=== PATIENT | female | born 1965 | race Caucasian/White ===

== ENCOUNTER 2024-12-26 08:33 | Inpatient (IN) ==
--- NOTE | 2024-12-26 08:42 | ED Physician Documentation ---
History of Present Illness Stated complaint Stated Complaint: SOA Chief complaint Chief Complaint: Resp History obtained from History obtained from: Patient and EMS History of Present Illness Pain level max: 3 Pain level now: 3 Additonal information Additional information: Patient is a 59-year-old female states has been short of breath for the past 3 weeks or so. She came up from [place] about a week ago. Has been using her daughter's oxygen and oxygen concentrator for the past several days. She states that she has been trying to quit vaping for the past few weeks. Feels like her breathing has gotten worse since that time. She states that she was having fevers but has not had 1 since last night. She states that she has used in halers in the past but has not used any inhalers or breathing treatments during this illness. EMS was called, placed her on oxygen and brought her to the emergency department. No treatments given en route. Patient has a history of HIV, she states her last viral load about a year ago was undetectable and her CD4 count was normal. 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 (Date/Year): December 09, 2024 Number of Years Smoked: 30 How many cigarettes a day do you smoke? (20 cigarettes=1 Pk): 10 Second hand tobacco smoke exposure: No Do you dip or chew tobacco?: No Do you vape?: Yes Patient requests smoking cessation consult: No Initiate information on smoking cessation: No Level: Independent Do you feel safe in your home environment?: Yes History of physical, verbal, emotional, or financial abuse?: No Substance Use: cannabis (any form) Substance Use Details: stopped on December 09, 2024 Exam Exam Vital Signs: Vital Signs x48h Temp Pulse Resp BP Pulse Ox O2 Flow Rate 12/26/24 10:15 100 22 115/74 96 5 12/26/24 10:11 86 18 4.5 12/26/24 10:00 88 20 119/67 97 15 12/26/24 09:45 97 22 124/65 90 L 5 12/26/24 09:30 101 H 88 L 5 12/26/24 09:15 96 22 93 5 12/26/24 09:00 95 18 4.5 12/26/24 09:00 91 20 101/61 92 5 12/26/24 08:49 95 22 97 15 12/26/24 08:45 98 20 84 L 6 12/26/24 08:43 6 12/26/24 08:37 37.6 C 103 H 20 102/64 77 L Constitutional Thin female, increased work of breathing, speaking in short sentences HENMT normocephalic, head/scalp atraumatic and oral mucous membranes normal Eyes PERRL Neck/C-Spine trachea midline Respiratory Diminished breath sounds bilaterally, end expiratory wheeze bilaterally increased work of breathing Psychiatry oriented x3 Skin skin color normal Results Vitals Vitals: Vital Signs - 24 hr 12/26/24 08:37 12/26/24 08:43 12/26/24 08:45 Temperature 37.6 C Temperature Source Temporal Artery Scan Pulse Rate 103 H 98 Respiratory Rate 20 20 Blood Pressure 102/64 O2 Saturation 77 L 84 L Oxygen Delivery Method Nasal Cannula O2 Source Room air Nasal cannula Oxygen Flow Rate If not protocol: Oxygen Flow, liters/minute 6 6 Pain Intensity 2 12/26/24 08:49 12/26/24 09:00 12/26/24 09:00 Temperature Temperature Source Pulse Rate 95 91 95 Respiratory Rate 22 20 18 Blood Pressure 101/61 O2 Saturation 97 92 Oxygen Delivery Method O2 Source Oxymask Nasal cannula Nasal cannula Oxygen Flow Rate If not protocol: Oxygen Flow, liters/minute 15 5 4.5 Pain Intensity 12/26/24 09:05 12/26/24 09:15 12/26/24 09:30 Temperature Temperature Source Pulse Rate 96 101 H Respiratory Rate 22 Blood Pressure O2 Saturation 93 88 L Oxygen Delivery Method Nasal Cannula O2 Source Nasal cannula Room air Oxygen Flow Rate 5 If not protocol: Oxygen Flow, liters/minute 5 5 Pain Intensity 12/26/24 09:45 12/26/24 10:00 12/26/24 10:11 Temperature Temperature Source Pulse Rate 97 88 86 Respiratory Rate 22 20 18 Blood Pressure 124/65 119/67 O2 Saturation 90 L 97 Oxygen Delivery Method O2 Source Nasal cannula Oxymask Nasal cannula Oxygen Flow Rate If not protocol: Oxygen Flow, liters/minute 5 15 4.5 Pain Intensity 12/26/24 10:15 Temperature Temperature Source Pulse Rate 100 Respiratory Rate 22 Blood Pressure 115/74 O2 Saturation 96 Oxygen Delivery Method O2 Source Nasal cannula Oxygen Flow Rate If not protocol: Oxygen Flow, liters/minute 5 Pain Intensity Oxygen O2 Source Nasal cannula Oxygen Flow Rate 5 Labs Labs: Laboratory Tests 12/26/24 08:43 WBC 11.4 H RBC 4.06 L Hgb 10.9 L Hct 33.5 L MCV 82.5 MCH 26.8 L MCHC 32.5 RDW 13.1 Plt Count 337 MPV 9.4 Neut # (Auto) 10.7 H Lymph # (Auto) 0.4 L [place] # (Auto) 0.2 Eos # (Auto) 0.0 Baso # (Auto) 0.0 Absolute Nucleated RBC 0.00 Nucleated RBC % 0.0 Sodium 131 L Potassium 4.5 Chloride 94 L Carbon Dioxide 31 Anion Gap 6.0 BUN 12 Creatinine 0.7 Estimated GFR (MDRD) 86 L Glucose 115 H Calcium 8.9 Total Bilirubin 0.5 AST 30 ALT 22 Alkaline Phosphatase 69 Total Protein 7.1 Albumin 2.9 L Globulin 4.2 Albumin/Globulin Ratio 0.7 L Rads (name of study) Chest x-ray, CT angiogram chest: Relevant Findings:: Final report received PD Medical Decision Making ED course Complexity details: reviewed results, re-evaluated patient, considered differential and d/w patient ED course: 59-year-old female history of HIV, on Biktarvy. She has also had a lengthy vaping history. Feels better after nebulizer treatment and steroids but still remains hypoxic, 90% on 5 L. She states that her last viral load and CD4 count were undetectable and within normal range respectively. We will send off a CD4 count and viral load today. Her chest x-ray and CT scan are concerning for infection. Imaging concerning for possible pneumocystis jiroveci, therefore was started on Bactrim in addition to the usual treatment of Rocephin and azithromycin. Patient will need admission for hypoxia, pneumonia and nebulizer treatments. Discussed the case with the hospitalist who accepts. This document was made in part using voice recognition software. While efforts are made to proofread this document, sound alike and grammatical errors may occur. Discharge Plan Discharge Patient Disposition: 66 [facility] DC/Xfer Condition: Stable Clinical Impression: Hypoxia Pneumonia Qualifiers: Pneumonia type: due to unspecified organism Laterality: bilateral Lung location: unspecified part of lung Qualified Code(s): J18.9 - Pneumonia, unspecified organism HIV (human immunodeficiency virus infection) Qualifiers: HIV symptom status: unspecified Qualified Code(s): Z21 - Asymptomatic human immunodeficiency virus [HIV] infection status Interventions: ED Admission Assessment Last Done: 12/26/24 11:09 Vitals documented within 30 minutes of discharge?: Yes
[2024-12-26] MEDS: methylPREDNISolone SUCCINATE 125 MG/2 ML VIAL IVP STA (08:43)
[2024-12-26] MEDS: IPRATROPIUM/ALBUTEROL 3 ML NEB INH STA (08:46)
[2024-12-26 08:49] LABS: HCT - HEMATOCRIT 33.5 % (37.0-47.0); HGB - HEMOGLOBIN 10.9 g/dL (12.0-16.0); MEAN PLATELET VOLUME 9.4 fL (7.9-10.8); NRBC ABSOLUTE COUNT (AUTO) 0.00 x10^3/uL; NUCLEATED RED BLOOD CELLS AUTO 0.0 /100WBC; PLT - PLATELET COUNT 337 10^3/uL (130-450); RED CELL DISTRIBUTION WIDTH 13.1 % (12.0-15.0)
[2024-12-26] MEDS: SODIUM CHLORIDE 0.9% 1,000 ML IV STA (08:54)
--- NOTE | 2024-12-26 09:02 | XRAY Report ---
PROCEDURE: XR Chest 1V INDICATIONS: cough, dyspnea TECHNIQUE: One view of the chest was acquired. COMPARISON: None. FINDINGS: Surgical changes and devices: ORIF of the left humerus. Lungs and pleura: Increased interstitial opacities. Mediastinum: Mediastinal contours appear normal. Heart size is normal. Bones and chest wall: No suspicious bony lesions. Overlying soft tissues appear unremarkable. IMPRESSION: Increase in interstitial opacities which may represent edema. However, airspace disease cannot be excluded. Reviewed by: Mireille Messer MD on 12/26/2024 9:01 AM PDT Approved by: Mireille Messer MD on 12/26/2024 9:01 AM PDT Station ID: [id number]
[2024-12-26 09:05] LABS: ALT ALANINE AMINOTRANSFERASE 22.0 IU/L (10-60); AST ASPARTATE AMINOTRANSFERASE 30.0 IU/L (10-42); BUN - BLOOD UREA NITROGEN 12.0 mg/dL (6-20); CARBON DIOXIDE - CO2 31.0 mmol/L (21-32); CREATININE 0.7 mg/dL (0.6-1.3); GFR - MDRD 86.0 (>89)
[2024-12-26] MEDS ORDERED: iohexoL-300 150 ML BOTTLE ONE (09:11)
--- NOTE | 2024-12-26 09:47 | CT Report ---
PROCEDURE: CT Angio Chest INDICATIONS: dyspnea CONTRAST: 80ml omni 300 TECHNIQUE: After the administration of intravenous contrast, 2 mm axial images were acquired from the pulmonary apices to the posterior costophrenic angles during the arterial phase. In addition, 1 mm lung kernel and 5 mm soft tissue kernel reconstructions were performed. 3-dimensional coronal oblique maximum intensity projection (MIP) reformats, 8 mm axial MIP, and 5 mm coronal and sagittal MPR reformats were then performed through the thorax. For radiation dose reduction, the following was used: automated exposure control, adjustment of mA and/or kV according to patient size. COMPARISON: Chest x-ray 12/26/2024. FINDINGS: Image quality: Suboptimal for evaluation of emboli within the segmental/subsegmental branches. Large vessels: No filling defects within the opacified main pulmonary arteries, accounting for motion and contrast timing. No evidence of acute aortic syndrome or aortic aneurysm. Lungs and pleura: Dependent changes are present predominantly in the right base. There is overall appearance of groundglass opacities within the lungs. Mediastinum: Heart size is normal. No pericardial effusion. No large vessel abnormality. No mediastinal adenopathy by size criteria. Chest wall and lower neck: Thyroid is unremarkable. No axillary or supraclavicular adenopathy by size. Bones: Right lateral sixth rib deformity likely related to prior trauma or surgery. Upper Abdomen: Unremarkable. IMPRESSION: No central pulmonary embolism. Bilateral groundglass opacity suggestive of infection/inflammation. Recommend interval follow-up to document resolution after appropriate therapy. Reviewed by: Mireille Messer MD on 12/26/2024 9:45 AM PDT Approved by: Mireille Messer MD on 12/26/2024 9:45 AM PDT Station ID: [id number]
[2024-12-26] MEDS: AZITHROMYCIN INJ 500 MG in SODIUM CHLORIDE 0.9% 250 ML IV STA (09:52)
[2024-12-26] MEDS: cefTRIAXone 1 GM VIAL IVP STA (09:52)
[2024-12-26 09:55] LABS: B. PARAPERTUSSIS- RESP PCR PAN NOT DETECTED; B. PERTUSSIS- RESP PCR PANEL NOT DETECTED; C. PNEUMONIAE- RESP PCR PANEL NOT DETECTED; CORONAVIRUS 229E-RESP PCR NOT DETECTED; CORONAVIRUS HKU1-RESP PCR NOT DETECTED; CORONAVIRUS NL63-RESP PCR NOT DETECTED; CORONAVIRUS OC43-RESP PCR NOT DETECTED; HUMAN METAPNEUMOVIRUS NOT DETECTED; INFLUENZA A- RESP PCR PANEL NOT DETECTED; INFLUENZA B - RESP PCR PANEL NOT DETECTED; M. PNEUMONIAE- RESP PCR PANEL NOT DETECTED; PARAINFLUENZA VIRUS 1 NOT DETECTED; PARAINFLUENZA VIRUS 2 NOT DETECTED; PARAINFLUENZA VIRUS 4 NOT DETECTED; RHINOVIRUS/ENTEROVIRUS NOT DETECTED; RSV- RESP PCR PANEL NOT DETECTED; SARS-CoV-2 -RESP PCR PANEL NOT DETECTED
[2024-12-26] MEDS: SULFAMETH/TRIMETH DS 800/160 MG TABLET PO STA (09:59)
[2024-12-26] MEDS: ALBUTEROL NEB 2.5 MG/3 ML INH STA (10:09)
--- NOTE | 2024-12-26 10:24 | HISTORY & PHYSICAL EXAMINATION ---
Chief Complaint Chief Complaint Chief Complaint: Difficulty breathing History of Present Illness Admitted From Admitted From:: Home History Obtained From Records Reviewed: EMR History obtained from: Patient Exam Limitations: None History of Present Illness HPI Comment/Other: Patient is a 59-year-old female with a history of HIV on Biktarvy, vape use history who presents with worsening shortness of breath. 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 She recently passed at the end of November. Since then, patient has been increasingly stressed and, and noncompliant with her Biktarvy regimen. She states that even normally, she only takes it 3 times a week, and that has helped keep her viral load undetectable. However, over the past few weeks, she has barely been taking it at all because she has been so distracted. She also was a heavy vape user, and quit on 12/09/2024. Since then, she has been increasingly short of breath. She normally lives in [facility], [place] here so she could help take care of her with this new shortness of breath. Her nurse friend was able to give her some breathing treatments, and supplement oxygen. However, last night, she ran out of oxygen. She had increasing shortness of breath, and as such decided to come to the ER. Over the last few weeks, she has also been having intermittent fevers and chills. In the ER, patient was hypoxic to 77%, and required 4 L of oxygen to improve to 92 to 95%. Her respiratory rate was 20, she was tachycardic to 103, afebrile, and blood pressure was 102/64. Lab work was reviewedshe does have a leukocytosis of 11.4. BMP was largely unremarkable. Respiratory viral panel was negative. Initial chest x-ray showed interstitial opacities. This was followed by a CTA which showed no PE, but bilateral ground glass opacities. Due to high suspicion for PCP pneumonia, she was started on IV Bactrim, as well as IV Solu-Medrol, and admitted for further workup. 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 (Date/Year): December 09, 2024 Number of Years Smoked: 30 How many cigarettes a day do you smoke? (20 cigarettes=1 Pk): 10 Second hand tobacco smoke exposure: No Do you dip or chew tobacco?: No Do you vape?: Yes Patient requests smoking cessation consult: No Initiate information on smoking cessation: No Level: Independent Do you feel safe in your home environment?: Yes History of physical, verbal, emotional, or financial abuse?: No Substance Use: cannabis (any form) Substance Use Details: stopped on December 09, 2024 POLST Patient has POLST: No Review of Systems Constitutional Reports: Fever, Chills and Weakness; Denies: Fatigue, Malaise or Poor appetite Eyes Denies: Pain, Irritation, Blurry vision, Vision loss, Diplopia or Eye discomfort Ears, nose, mouth, and throat Denies: Ear pain, Hearing loss, Tinnitus, Nose bleeds, Nasal discharge, Mouth lesions, Bleeding gums or Neck pain Cardiovascular Reports: shortness of breath with exertion; Denies: Irregular heart rate, chest pain, palpitations, edema or Syncope Respiratory Reports: Shortness of breath, Cough and Sputum production; Denies: Wheezing Gastrointestinal Denies: Abdominal pain, Abdominal distention, Nausea, Vomiting, Heartburn, Diarrhea or Constipation Genitourinary Denies: Painful urination, Urinary frequency or Urinary urgency Musculoskeletal Denies: Back pain, Neck pain, Extremity pain, Extremity swelling or Joint pain Integumentary/Breast Denies: Rash, Itching, Dryness, Redness or Skin pain Neurological Reports: General weakness; Denies: Headache, Weakness in extremities, Numbness in extremities, Abnormal gait or Dizziness Psychiatric Denies: Depression, Anxiety, Mood swings or Panic attacks Endocrine Denies: Excessive urination, Excessive thirst or Fatigue Hematologic/Lymphatic Denies: Anemia, Easy bruising or Easy bleeding Allergic/Immunologic Denies: Hives, Tongue swelling, Facial swelling or Wheezing Prior Level of Functionality: Independent of ADLs. Lives alone. Retired. Used to own a herbal shop. Exam Exam Vital Signs: Vital Signs x48h Temp Pulse Resp BP Pulse Ox O2 Flow Rate 12/26/24 10:45 100 22 107/61 91 L 3.5 12/26/24 10:30 102 H 20 109/59 L 97 5 12/26/24 10:15 100 22 115/74 96 5 12/26/24 10:11 86 18 4.5 12/26/24 10:00 88 20 119/67 97 15 12/26/24 09:45 97 22 124/65 90 L 5 12/26/24 09:30 101 H 88 L 5 12/26/24 09:15 96 22 93 5 12/26/24 09:00 95 18 4.5 12/26/24 09:00 91 20 101/61 92 5 12/26/24 08:49 95 22 97 15 12/26/24 08:45 98 20 84 L 6 12/26/24 08:43 6 12/26/24 08:37 99.7 F 103 H 20 102/64 77 L Constitutional normal general appearance, distress noted, average body habitus and no limitations Mild respiratory distress noted, some conversational dyspnea noted HENMT normocephalic, head/scalp atraumatic and hearing grossly normal bilaterally Eyes PERRL, EOMs intact bilaterally and conjunctivae normal Neck/C-Spine visual inspection normal, trachea midline and cervical spine nontender Chest inspection of chest normal Respiratory breath sounds equal bilaterally and normal respiratory effort Fine crackles noted diffusely, right greater than left Cardiovascular heart rate abnormal (tachycardic), regular rhythm noted, no gallop, no rub and no murmur Gastrointestinal abdomen normal to inspection, abdomen soft to palpation, nontender to palpation and normoactive bowel sounds Genitourinary no CVA tenderness and bladder normal to palpation Back/Pelvis spine normal to inspection, no thoracic spine tenderness and no lumbar spine tenderness Extremities normal to inspection, normal to palpation, no tenderness and full ROM Neurology no movement abnormality noted and no focal motor deficit noted Psychiatry mental status grossly normal, oriented x3, thought process normal, cooperative and affect normal Skin skin color normal, no rash, no lesions and no wounds Conclusion/Plan Problem List (1) PCP (pneumocystis jiroveci pneumonia): Plan: Patient presents with shortness of breath, hypoxia requiring 4 L of oxygen, fevers and chills at home. She endorses being noncompliant with her Biktarvy. CT chest shows bilateral ground glass opacities. Will treat at this time as presumptive PCP pneumonia. Fungal sputum culture, anaerobic/aerobic cultures of the sputum are ordered, pending. [id number] send out test is also ordered. Continue Bactrim weight-based dosing IV every 8 hours. Will treat with IV Bactrim as recommended for a few days, and then switch to oral dosing for a total of 21-day course. Continue IV Solu-Medrol this time, and then will switch to oral prednisone once patient is improved. Continue DuoNebs 3 times a day. Respiratory precautions in place. Qualifiers: Laterality: bilateral Lung location: unspecified part of lung Q ualified Code(s): B59 - Pneumocystosis (2) Acute hypoxic respiratory failure: Plan: See above. Continue Rocephin, azithromycin at this time as well for possible community-acquired pneumonia. However, high suspicion for PCP pneumonia with patient having noncompliance with her antiretrovirals, as well as typical imaging findings of PCP pneumonia. (3) HIV (human immunodeficiency virus infection): Plan: Continue Biktarvy. Qualifiers: HIV symptom status: unspecified Qualified Code(s): Z21 - Asymptomatic human immunodeficiency virus [HIV] infection status (4) Vaping-related disorder: Plan: Continue to encourage cessation when appropriate. Lab Results Lab results reviewed: Yes 12/26/24 08:43 12/26/24 08:43 Diagnostic Imaging Results Diagnostic Imaging Results: positive Final report reviewed Core Measures Anticipated LOS I expect patient to be DC'd or transferred within 96 hours.: Yes DVT/VTE - Prophylaxis VTE/DVT Device ordered at admit?: No VTE/DVT Prophylaxis med ordered at admit?: Yes
[2024-12-26] MEDS: SMX/TMP 800MG/160MG 10ML 20 ML in DEXTROSE 5% 500 ML IV ONE (10:41)
[2024-12-26] MEDS ORDERED: ACETAMINOPHEN 325 MG TABLET PO PRN (11:17)
[2024-12-26] MEDS ORDERED: ONDANSETRON 4 MG/2 ML VIAL IVP PRN (11:17)
[2024-12-26] MEDS ORDERED: ONDANSETRON ODT 4 MG TABLET TL PRN (11:17)
[2024-12-26] MEDS: methylPREDNISolone SUCCINATE 40 MG/ML VIAL IVP SCH (14:23)
[2024-12-26] MEDS: IPRATROPIUM/ALBUTEROL 3 ML NEB INH SCH (15:53)
--- NOTE | 2024-12-26 15:55 | PHARMACY PROGRESS NOTE ---
Best Possible Medication History Admit Date and Time: 12/26/24 [id number] Home Medications Medication Instructions Recorded Confirmed Type acetylcysteine 500 mg tablet 500 mg PO DAILY 12/26/24 12/26/24 History bictegravir 50 mg-emtricitabine 1 tab PO DAILY 5 12/26/24 History 200 mg-tenofovir alafenam 25 mg tablet (Biktarvy) tox ease 1 cap PO DAILY 12/26/2412/06 History Processed by: Pharmacy Medications reviewed in ED?: No Medication History completed: Yes Patient Interview: Pt unable to participate Secondary Source(s): Prescription bottles [facility] Statement: As the person ultimately responsible for medication therapy, providers are able to order a medication from an existing home medication list in [facility] via the "Reconcile Routine" prior to Confirmation of that medication by network support technician. Such practice is discouraged except when the physician, in their clinical judgment, deems that a medical need exists for a medication without regard to previous use.
[2024-12-26] MEDS: SODIUM CHLORIDE FLUSH 0.9% 10 ML SYRINGE IVP SCH (17:46)
[2024-12-26] MEDS: SMX/TMP 800MG/160MG 10ML 20 ML in DEXTROSE 5% 500 ML IV SCH (19:01)
[2024-12-26] MEDS ORDERED: WATER FOR INJECTION,STERILE 10 ML MC ONE (21:26)
[2024-12-26] MEDS: SODIUM CHLORIDE FLUSH 0.9% 10 ML SYRINGE IVP PRN (21:32)
[2024-12-27] MEDS ORDERED: DEXTROSE 5% 500 ML IV ONE ×2 (01:18→18:23)
[2024-12-27] MEDS: IPRATROPIUM/ALBUTEROL 3 ML NEB INH PRN (02:26)
[2024-12-27 05:54] LABS: HCT - HEMATOCRIT 32.1 % (37.0-47.0); HGB - HEMOGLOBIN 10.4 g/dL (12.0-16.0); MEAN PLATELET VOLUME 9.5 fL (7.9-10.8); PLT - PLATELET COUNT 316.0 10^3/uL (130-450); RED CELL DISTRIBUTION WIDTH 12.9 % (12.0-15.0)
[2024-12-27 06:19] LABS: BUN - BLOOD UREA NITROGEN 11.0 mg/dL (6-20); CARBON DIOXIDE - CO2 27.0 mmol/L (21-32); CREATININE 0.7 mg/dL (0.6-1.3); GFR - MDRD 86.0 (>89)
--- NOTE | 2024-12-27 07:55 | PROVIDER PROGRESS NOTE ---
Subjective Subjective Subjective: Patient states that she feels better today. She states her shortness of breath is improving. She is trying to bring up sputum. Still yellow to clear. Denies any fevers or chills. Current Medications Current Medications Current Medications: Current Medications Generic Name Dose Route Start Last Admin Trade Name Freq PRN Reason Stop Dose Admin Acetaminophen 650 mg 12/26/24 11:17 Acetaminophen 325 Mg Tablet PO Q4HR PRN Pain 1 to 4, or Fever Albuterol/Ipratropium 3 ml 12/26/24 14:00 12/26/24 20:26 Ipratropium/Albuterol 3 Ml Neb INH 3 ml TID ALEJANDRO Administration Albuterol/Ipratropium 3 ml 12/27/24 02:12 12/27/24 02:26 Ipratropium/Albuterol 3 Ml Neb INH 3 ml Q4HR PRN Administration Wheezing Alprazolam 0.25 mg 12/26/24 21:47 12/27/24 02:11 Alprazolam 0.25 Mg Tablet PO 0.25 mg Q6HR PRN Administration Anxiety Ceftriaxone Sodium 1 gm 12/27/24 09:00 Ceftriaxone 1 Gm Vial IVP DAILY ALEJANDRO Enoxaparin Sodium 40 mg 12/27/24 09:00 Enoxaparin 40 Mg/0.4 Ml Syringe SUBQ DAILY ALEJANDRO Trimethoprim/Sulfamethoxazole 520 mls @ 346.667 mls/hr 12/26/24 19:00 12/27/24 06:58 20 ml/ Dextrose IV Infused Q8H ALEJANDRO Infusion Azithromycin 500 mg/ Sodium 250 mls @ 250 mls/hr 12/27/24 09:00 Chloride IV DAILY ALEJANDRO Methylprednisolone 40 mg 12/26/24 14:00 12/27/24 06:59 Methylprednisolone Succinate 40 Mg/Ml Vial IVP 40 mg TID ALEJANDRO Administration Ondansetron HCl 4 mg 12/26/24 11:17 Ondansetron Odt 4 Mg Tablet TL Q6HR PRN Nausea / Vomiting Ondansetron HCl 4 mg 12/26/24 11:17 Ondansetron 4 Mg/2 Ml Vial IVP Q6HR PRN Nausea / Vomiting Sodium Chloride 10 ml 12/26/24 11:17 12/26/24 21:32 Sodium Chloride Flush 0.9% 10 Ml Syringe IVP 10 ml PRN PRN Administration NEEDED PER PROVIDER ORDERS Sodium Chloride 10 ml 12/26/24 17:00 12/27/24 03:13 Sodium Chloride Flush 0.9% 10 Ml Syringe IVP 10 ml 0100,0900,1700 [facility] Administration Sterile Water 10 ml 12/27/24 09:00 Water For Injection,Sterile 10 Ml Vial DAILY [facility] Objective Vital Signs/Intake & Output Reviewed Vital Signs: Yes Vital Signs: Vital Signs x48h Temp Pulse Pulse Resp BP Pulse Ox O2 Flow Rate 12/27/24 02:26 72 20 5 12/27/24 02:00 97.9 F 78 14 111/69 93 4.5 Intake & Output: Intake & Output 12/24/24 12/25/24 12/26/24 12/27/24 23:59 23:59 23:59 23:59 Intake Total 3330 / 3330 620 / 620 Balance 3330 / 3330 620 / 620 Weight (kg) 49 kg Objective General Appearance: positive No acute distress and Alert; negative Anxious Eyes Bilateral: positive Normal inspection, PERRL and EOMI ENT: positive ENT inspection nml, Pharynx nml and No signs of dehydration Neck: positive Nml inspection, Thyroid nml and No JVD Respiratory: positive Chest non-tender, No respiratory distress and Other (Diffuse fine crackles, right worse than left); negative Wheezes, Rales or Rhonchi Cardiovascular: positive Regular rate & rhythm, No murmur and No gallop; negative Tachycardia or Systolic murmur Abdomen: positive Non-tender, No organomegaly and No distention; negative Guarding or Splenomegaly Back: positive Nml inspection; negative CVA tenderness (R) or CVA tenderness (L) Skin: positive Color nml, No rash, Warm and Dry Extremities: positive Non-tender, Full ROM, Nml appearance and No pedal edema Neurologic/Psychiatric: positive Oriented x3, Motor nml and Mood/affect nml Lab Results 12/27/24 05:40 12/27/24 05:40 Other Labs: Lab Results x24hrs 12/27/24 12/26/24 12/26/24 Range/Units 05:40 Unknown 08:43 WBC 12.5 H 11.4 H (4.8-10.8) x10^3/uL RBC 3.84 L 4.06 L (4.20-5.40) 10^6/uL Hgb 10.4 L 10.9 L (12.0-16.0) g/dL Hct 32.1 L 33.5 L (37.0-47.0) % MCV 83.6 82.5 (81.0-99.0) fL MCH 27.1 26.8 L (27.0-31.0) pg MCHC 32.4 32.5 (32.0-36.0) g/dL RDW 12.9 13.1 (12.0-15.0) % Plt Count 316 337 (130-450) 10^3/uL MPV 9.5 9.4 (7.9-10.8) fL Neut # (Auto) 10.7 H (1.5-6.6) 10^3/uL Lymph # (Auto) 0.4 L (1.5-3.5) 10^3/uL Gaston # (Auto) 0.2 (0.0-1.0) 10^3/uL Eos # (Auto) 0.0 (0.0-0.7) 10^3/uL Baso # (Auto) 0.0 (0.0-0.1) 10^3/uL Absolute Nucleated RBC 0.00 x10^3/uL Nucleated RBC % 0.0 /100WBC Sodium 133 L 131 L (135-145) mmol/L Potassium 4.1 4.5 (3.5-4.5) mmol/L Chloride 101 94 L (101-111) mmol/L Carbon Dioxide 27 31 (21-32) mmol/L Anion Gap 5.0 L 6.0 (6-13) BUN 11 12 (6-20) mg/dL Creatinine 0.7 0.7 (0.6-1.3) mg/dL Estimated GFR (MDRD) 86 L 86 L (>89) Glucose 115 H 115 H (74-104) mg/dL Calcium 8.3 L 8.9 (8.5-10.3) mg/dL Magnesium 2.1 (1.7-2.3) mg/dL Total Bilirubin 0.5 (0.2-1.0) mg/dL AST 30 (10-42) IU/L ALT 22 (10-60) IU/L Alkaline Phosphatase 69 (42-121) IU/L Total Protein 7.1 (6.4-8.9) g/dL Albumin 2.9 L (3.2-5.5) g/dL Globulin 4.2 (2.1-4.2) g/dL Albumin/Globulin Ratio 0.7 L (1.0-2.2) Nasal Adenovirus (PCR) NOT DETECTED Nasal B. parapertussis DNA (PCR) NOT DETECTED Nasal Coronavir 229E PCR NOT DETECTED Nasal Coronavir HKU1 PCR NOT DETECTED Nasal Coronavir NL63 PCR NOT DETECTED Nasal Coronavir OC43 PCR NOT DETECTED Nasal Enterovir/Rhinovir PCR NOT DETECTED Nasal Influenza B PCR NOT DETECTED Nasal Influenza A PCR NOT DETECTED Nasal Parainfluen 1 PCR NOT DETECTED Nasal Parainfluen 2 PCR NOT DETECTED Nasal Parainfluen 3 PCR NOT DETECTED Nasal Parainfluen 4 PCR NOT DETECTED Nasal RSV (PCR) NOT DETECTED Nasal B.pertussis DNA PCR NOT DETECTED Nasal C.pneumoniae (PCR) NOT DETECTED Juan Jose Human Metapneumo PCR NOT DETECTED Nasal M.pneumoniae (PCR) NOT DETECTED Nasal SARS-CoV-2 (PCR) NOT DETECTED Assessment/Plan Problem List (1) PCP (pneumocystis jiroveci pneumonia): Impression: Patient presents with shortness of breath, hypoxia requiring 5 L of oxygen, fevers and chills at home. She endorses being noncompliant with her Biktarvy. CT chest shows bilateral ground glass opacities. Will treat at this time as presumptive PCP pneumonia. Fungal sputum culture, anaerobic/aerobic cultures of the sputum are ordered, pending. [id number] send out test is also ordered. Continue Bactrim weight-based dosing IV every 8 hours. Will treat with IV Bactrim as recommended for a few days, and then switch to oral dosing for a total of 21-day course. Continue IV Solu-Medrol this time, and then will switch to oral prednisone once patient is improved. Continue DuoNebs 3 times a day. Respiratory precautions in place. Qualifiers: Laterality: bilateral Lung location: unspecified part of lung Q ualified Code(s): B59 - Pneumocystosis (2) Acute hypoxic respiratory failure: Impression: See above. Continue Rocephin, azithromycin at this time as well for possible community-acquired pneumonia. However, high suspicion for PCP pneumonia with patient having noncompliance with her antiretrovirals, as well as typical imaging findings of PCP pneumonia. (3) HIV (human immunodeficiency virus infection): Impression: Continue Biktarvy. 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
[2024-12-27] MEDS: AZITHROMYCIN INJ 500 MG in SODIUM CHLORIDE 0.9% 250 ML IV SCH (08:54)
[2024-12-27] MEDS: cefTRIAXone 1 GM VIAL IVP SCH (08:54)
[2024-12-27] MEDS: ENOXAPARIN 40 MG/0.4 ML SYRINGE SUBQ SCH (08:54)
[2024-12-27 14:08] LABS: % CD 4 POS. LYMPH. 4.8 % (30.8-58.5); ABSOLUTE CD 4 HELPER 14.0 /uL (359-1519)
[2024-12-28] MEDS ORDERED: DEXTROSE 5% 500 ML IV ONE (02:48)
[2024-12-28 06:02] LABS: HCT - HEMATOCRIT 31.0 % (37.0-47.0); HGB - HEMOGLOBIN 9.8 g/dL (12.0-16.0); MEAN PLATELET VOLUME 9.9 fL (7.9-10.8); PLT - PLATELET COUNT 361.0 10^3/uL (130-450); RED CELL DISTRIBUTION WIDTH 13.1 % (12.0-15.0)
[2024-12-28 06:20] LABS: BUN - BLOOD UREA NITROGEN 12.0 mg/dL (6-20); CARBON DIOXIDE - CO2 25.0 mmol/L (21-32); CREATININE 0.8 mg/dL (0.6-1.3); GFR - MDRD 74.0 (>89)
[2024-12-28] MEDS ORDERED: LEVALBUTEROL 1.25 MG/3 ML NEB INH PRN ×2 (07:48→07:49)
[2024-12-28] MEDS ORDERED: LEVALBUTEROL 1.25 MG/3 ML NEB INH SCH (08:00)
[2024-12-28] MEDS: BICTEGRAV EMTRICIT TENOFOV ALA PO SCH (08:25)
[2024-12-28] MEDS: LEVALBUTEROL 1.25 MG/3 ML NEB INH SCH (08:25)
--- NOTE | 2024-12-28 09:32 | PROVIDER PROGRESS NOTE ---
Subjective Subjective Subjective: Patient states that she feels better today. She states her shortness of breath is improving. She is trying to bring up sputum. Still yellow to clear. Denies any fevers or chills. She is feeling a little anxious at times, especially at night. She is attributing it to her steroid use. Current Medications Current Medications Current Medications: Current Medications Generic Name Dose Route Start Last Admin Trade Name Freq PRN Reason Stop Dose Admin Acetaminophen 650 mg 12/26/24 11:17 Acetaminophen 325 Mg Tablet PO Q4HR PRN Pain 1 to 4, or Fever Alprazolam 0.5 mg 12/27/24 21:59 12/28/24 00:12 Alprazolam 0.25 Mg Tablet PO 0.5 mg Q4H PRN Administration Anxiety Ceftriaxone Sodium 1 gm 12/27/24 09:00 12/28/24 08:24 Ceftriaxone 1 Gm Vial IVP 1 gm DAILY ALEJANDRO Administration Enoxaparin Sodium 40 mg 12/27/24 09:00 12/28/24 08:25 Enoxaparin 40 Mg/0.4 Ml Syringe SUBQ 40 mg DAILY ALEJANDRO Administration Guaifenesin 10 ml 12/27/24 09:26 12/27/24 16:23 Guaifenesin/Dextromethorphan 10 Ml Udc PO 10 ml Q6HR PRN Administration Cough Trimethoprim/Sulfamethoxazole 520 mls @ 346.667 mls/hr 12/26/24 19:00 12/28/24 07:44 20 ml/ Dextrose IV Infused Q8H ALEJANDRO Infusion Azithromycin 500 mg/ Sodium 250 mls @ 250 mls/hr 12/27/24 09:00 12/28/24 08:24 Chloride IV 250 mls/hr DAILY ALEJANDRO Administration Levalbuterol HCl 1.25 mg 12/28/24 07:49 Levalbuterol 1.25 Mg/3 Ml Neb INH Q4H PRN Shortness of Air/Wheezing Levalbuterol HCl 1.25 mg 12/28/24 08:00 12/28/24 08:25 Levalbuterol 1.25 Mg/3 Ml Neb INH 1.25 mg TID ALEJANDRO Administration Ondansetron HCl 4 mg 12/26/24 11:17 Ondansetron Odt 4 Mg Tablet TL Q6HR PRN Nausea / Vomiting Ondansetron HCl 4 mg 12/26/24 11:17 Ondansetron 4 Mg/2 Ml Vial IVP Q6HR PRN Nausea / Vomiting Patient Own Med ( 1 each 12/28/24 09:00 12/28/24 08:25 Bictegrav-Emtricit- PO Not Given Tenofov Ala [ DAILY ALEJANDRO Biktarvy] 50-200-25 Mg Tablet) Prednisone 40 mg 12/28/24 09:00 12/28/24 08:26 Prednisone 20 Mg Tablet PO 40 mg BID ALEJANDRO Administration Sodium Chloride 10 ml 12/26/24 11:17 12/27/24 21:57 Sodium Chloride Flush 0.9% 10 Ml Syringe IVP 10 ml PRN PRN Administration NEEDED PER PROVIDER ORDERS Sodium Chloride 10 ml 12/26/24 17:00 12/28/24 08:26 Sodium Chloride Flush 0.9% 10 Ml Syringe IVP 10 ml 0100,0900,1700 ALEJANDRO Administration Sterile Water 10 ml 12/27/24 09:00 12/28/24 08:24 Water For Injection,Sterile 10 Ml Vial MC 10 ml DAILY ALEJANDRO Administration Objective Vital Signs/Intake & Output Reviewed Vital Signs: Yes Vital Signs: Vital Signs x48h Pulse Resp O2 Flow Rate 12/28/24 08:25 3 12/28/24 08:25 114 H 18 3 Intake & Output: Intake & Output 12/25/24 12/26/24 12/27/24 12/28/24 23:59 23:59 23:59 23:59 Intake Total 3330 / 3330 2580 / 2580 920 / 920 Balance 3330 / 3330 2580 / 2580 920 / 920 Weight (kg) 49 kg Objective General Appearance: positive No acute distress and Alert; negative Anxious Eyes Bilateral: positive Normal inspection, PERRL and EOMI ENT: positive ENT inspection nml, Pharynx nml and No signs of dehydration Neck: positive Nml inspection, Thyroid nml and No JVD Respiratory: positive Chest non-tender, No respiratory distress and Other (Diffuse fine crackles, right worse than left); negative Wheezes, Rales or Rhonchi Cardiovascular: positive Regular rate & rhythm, No murmur and No gallop; negative Tachycardia or Systolic murmur Abdomen: positive Non-tender, No organomegaly and No distention; negative Guarding or Splenomegaly Back: positive Nml inspection; negative CVA tenderness (R) or CVA tenderness (L) Skin: positive Color nml, No rash, Warm and Dry Extremities: positive Non-tender, Full ROM, Nml appearance and No pedal edema Neurologic/Psychiatric: positive Oriented x3, Motor nml and Mood/affect nml Lab Results 12/28/24 05:08 12/28/24 05:08 Other Labs: Lab Results x24hrs 12/28/24 12/26/24 Range/Units 05:08 09:58 WBC 15.9 H (4.8-10.8) x10^3/uL RBC 3.67 L (4.20-5.40) 10^6/uL Hgb 9.8 L (12.0-16.0) g/dL Hct 31.0 L (37.0-47.0) % MCV 84.5 (81.0-99.0) fL MCH 26.7 L (27.0-31.0) pg MCHC 31.6 L (32.0-36.0) g/dL RDW 13.1 (12.0-15.0) % Plt Count 361 (130-450) 10^3/uL MPV 9.9 (7.9-10.8) fL Lymph # (Auto) 0.3 L (0.7-3.1) x10E3/uL Sodium 132 L (135-145) mmol/L Potassium 4.1 (3.5-4.5) mmol/L Chloride 101 (101-111) mmol/L Carbon Dioxide 25 (21-32) mmol/L Anion Gap 6.0 (6-13) BUN 12 (6-20) mg/dL Creatinine 0.8 (0.6-1.3) mg/dL Estimated GFR (MDRD) 74 L (>89) Glucose 184 H (74-104) mg/dL Calcium 8.3 L (8.5-10.3) mg/dL Magnesium 2.0 (1.7-2.3) mg/dL % CD4 Cells 4.8 L (30.8-58.5) % Absolute CD4 Count 14 L (359-1519) /uL Assessment/Plan Problem List (1) PCP (pneumocystis jiroveci pneumonia): Impression: Patient presents with shortness of breath, hypoxia requiring 5 L of oxygen, fevers and chills at home. She endorses being noncompliant with her Biktarvy. CT chest shows bilateral ground glass opacities. She is now down to 3 L. Will treat at this time as presumptive PCP pneumonia. Fungal sputum culture, anaerobic/aerobic cultures of the sputum are ordered, pending. [id number] send out test is also ordered. Continue Bactrim weight-based dosing IV every 8 hours. Will treat with IV Bactrim as recommended for a few days, and then switch to oral dosing for a total of 21-day course. Continue IV Bactrim at this time. Her oxygen needs are decreasing, as well as her tachypnea. However, her white count has continued to increase. Patient is a little hypotensive, which is a common and known side effect of IV Bactrim. Will supplement with IV fluids as needed. Completed 2 days of IV SoluMedrol. Will do prednisone 40 mg twice a day for 3 additional days, followed by prednisone 40 mg daily for 5 days, followed by prednisone 20 mg for 11 days. Patient is getting a little tachycardic and anxious with the DuoNeb treatments. Will try Xopenex. Respiratory precautions in place. Qualifiers: Laterality: bilateral Lung location: unspecified part of lung Q ualified Code(s): B59 - Pneumocystosis (2) Acute hypoxic respiratory failure: Impression: See above. Continue 5 day course of Rocephin, 3 day course of azithromycin at this time as well for possible community-acquired pneumonia. However, high suspicion for PCP pneumonia with patient having noncompliance with her antiretrovirals, as well as typical imaging findings of PCP pneumonia. (3) HIV (human immunodeficiency virus infection): Impression: Continue Biktarvy. Her CD4 count is 14. Per pharmacy, she has not filled her Biktarvy in over a year. I will call her infectious disease doctor on Sunday. She should be on histoplasmosis prophylaxis, as well as PCP prophylaxis moving forward. Will see if she has any resistance patterns or workup in the past with her ID doc, and if not we will resume her on her Biktarvy. 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
--- NOTE | 2024-12-28 15:09 | ECHO Report ---
Version: 1 Study ID: [id number] Adult Echocardiogram Report Name: ELIANA CALLE Study Date: 12/27/2024, 12: 53 PM Patient Location: MS2^2203^01 HR: 78 bpm : 1965 (MM/DD/YYYY) Gender: Female Height: 62 in Age: 59 Years Weight: 108.026 lb BSA: 1.47 m² Reason For Study: AARTI Interpretation Summary The visual left ventricular ejection fraction is estimated at 65 to 70%. Global left ventricular systolic function is normal. The right ventricle is normal in size and function. No concerning cardiac valve disease is noted. Left Ventricle: The left ventricle is normal in size. There is normal left ventricular wall thickness. No thrombus seen in the left ventricle. The visual left ventricular ejection fraction is estimated at 65 to 70%. Global left ventricular systolic function is normal. The overall diastolic pattern is one of normal left ventricular relaxation and filling pressures. Right Ventricle: The right ventricle is normal in size and function. TAPSE is consistent with normal right ventricular function. The tricuspid annular plane systolic excursion (TAPSE) measurement is 2.6 cm. Aortic Valve: The aortic valve is mildly calcified. The aortic valve is trileaflet. No hemodynamically significant valvular aortic stenosis. No aortic regurgitation is present. Mitral Valve: The mitral valve is visually normal in structure and function. No evidence of mitral stenosis is seen. There is trace mitral regurgitation. Tricuspid Valve: The tricuspid valve is normal in structure and function. There is no tricuspid stenosis. Trace tricuspid regurgitation present. Pulmonic Valve: The pulmonic valve is normal in structure and function. There is no pulmonic valvular stenosis. Trace pulmonic valvular regurgitation is present. Left Atrium: The left atrial size is normal. Right Atrium: Right atrial size is normal. The inferior vena cava appears normal. Atrial Septum: The interatrial septum appears normal, without evidence of shunt by 2D imaging and color Doppler. Aorta: The ascending aorta is normal in size. The sinuses of Valsalva are normal in size. Pulmonary Artery: The pulmonary artery is normal size. Inferior vena cava dynamics indicate normal right atrial pressures. Pulmonary artery systolic pressure could not be estimated due to an insufficient tricuspid regurgitant jet. Pericardium/Pleural Space: There is no pericardial effusion. Left Ventricle IVSd: 0.77 cm LVIDd: 4.4 cm LVPWd: 0.72 cm LVIDs: 2.9 cm ESV(sp4-el): 30.4 ml Right Ventricle TAPSE: 2.6 cm RV S Jair: 17.8 cm/sec Atria LA dimension: 4.0 cm LAV(MOD-sp4): 23.6 ml LAV(MOD-sp2): 21.7 ml Diastolic Function MV dec time: 0.19 sec MV E max jair: 121.2 cm/sec MV A max jair: 75.5 cm/sec Aortic Valve LVOT diam: 1.70 cm LV V1 mean P.9 mmHg LV V1 mean: 103.9 cm/sec LV V1 VTI: 32.2 cm Ao V2 VTI: 33.8 cm Ao mean P.0 mmHg Ao V2 mean: 113.8 cm/sec LV V1 max: 152.0 cm/sec LV V1 max P.2 mmHg Ao max P.3 mmHg Ao V2 max: 160.7 cm/sec Mitral Valve MV max P.8 mmHg MV V2 max: 140.1 cm/sec MV mean P.7 mmHg MV V2 mean: 72.4 cm/sec MV V2 VTI: 31.0 cm Aorta Ao root diam: 2.9 cm MMode/2D Measurements & Calculations Ao root diam: 2.9 cm BMI: 19.8 kilograms/m² BSA([facility]): 1.46 m² ESV(sp4-el): 30.4 ml IVSd: 0.77 cm LA A4C-A/L: 12.4 cm² LA dimension: 4.0 cm LA ESV-A/L: 31.6 ml LA Vol Index: 49.8 ml/m² LAV(MOD-sp2): 21.7 ml LAV(MOD-sp4): 23.6 ml LVIDd: 4.4 cm LVIDs: 2.9 cm LVOT diam: 1.70 cm LVPWd: 0.72 cm RA A4Cs: 10.3 cm² TAPSE: 2.6 cm Doppler Measurements & Calculations Ao max P.3 mmHg Ao mean P.0 mmHg Ao V2 max: 160.7 cm/sec Ao V2 mean: 113.8 cm/sec Ao V2 VTI: 33.8 cm Lat E/e': 10.8 LV V1 max: 152.0 cm/sec LV V1 max P.2 mmHg LV V1 mean: 103.9 cm/sec LV V1 mean P.9 mmHg LV V1 VTI: 32.2 cm Med E/e': 16.7 MV A max jair: 75.5 cm/sec MV dec time: 0.19 sec MV DVI-pr: 1.60 MV E max jair: 121.2 cm/sec MV max P.8 mmHg MV mean P.7 mmHg MV V2 max: 140.1 cm/sec MV V2 mean: 72.4 cm/sec MV V2 VTI: 31.0 cm PA max P.8 mmHg PA V2 max: 109.6 cm/sec RV S Jair: 17.8 cm/sec Other Measurements & Calculations Ao root area: 6.5 cm² ADRYAN(I,D): 2.17 cm² ADRYAN(V,D): 2.15 cm² EDV(Teich): 87.0 ml EF(sp-el): 50.0 % EF(Teich): 61.7 % ESV(Teich): 33.3 ml FS: 32.9 % LVOT area: 2.27 cm² MV E/A: 1.60 MVA(VTI): 2.36 cm² SV(LVOT): 73.2 ml MD Cheryle Ridley 12/28/2024, 3: 08 PM Ordering Physician: Chang Wilkerson Referring Physician: Abdias Ayers Performed By: NADIA
[2024-12-29 05:39] LABS: HCT - HEMATOCRIT 29.6 % (37.0-47.0); HGB - HEMOGLOBIN 9.5 g/dL (12.0-16.0); MEAN PLATELET VOLUME 9.7 fL (7.9-10.8); PLT - PLATELET COUNT 331.0 10^3/uL (130-450); RED CELL DISTRIBUTION WIDTH 13.3 % (12.0-15.0)
[2024-12-29 05:57] LABS: BUN - BLOOD UREA NITROGEN 10.0 mg/dL (6-20); CARBON DIOXIDE - CO2 25.0 mmol/L (21-32); CREATININE 0.8 mg/dL (0.6-1.3); GFR - MDRD 74.0 (>89)
--- NOTE | 2024-12-29 08:15 | PROVIDER PROGRESS NOTE ---
Subjective Subjective Subjective: Patient states that she feels better today. She states her shortness of breath is improving. She is trying to bring up sputum. Still yellow to clear. Denies any fevers or chills. She is feeling a little anxious at times, especially at night. She is attributing it to her steroid use. Current Medications Current Medications Current Medications: Current Medications Generic Name Dose Route Start Last Admin Trade Name Freq PRN Reason Stop Dose Admin Acetaminophen 650 mg 12/26/24 11:17 Acetaminophen 325 Mg Tablet PO Q4HR PRN Pain 1 to 4, or Fever Alprazolam 0.5 mg 12/27/24 21:59 12/28/24 21:32 Alprazolam 0.25 Mg Tablet PO 0.5 mg Q4H PRN Administration Anxiety Ceftriaxone Sodium 1 gm 12/27/24 09:00 12/28/24 08:24 Ceftriaxone 1 Gm Vial IVP 1 gm DAILY ALEJANDRO Administration Enoxaparin Sodium 40 mg 12/27/24 09:00 12/28/24 08:25 Enoxaparin 40 Mg/0.4 Ml Syringe SUBQ 40 mg DAILY ALEJANDRO Administration Guaifenesin 10 ml 12/27/24 09:26 12/27/24 16:23 Guaifenesin/Dextromethorphan 10 Ml Udc PO 10 ml Q6HR PRN Administration Cough Hydroxyzine Pamoate 25 mg 12/28/24 15:35 12/28/24 21:32 Hydroxyzine Pamoate 25 Mg Capsule PO 25 mg QPM PRN Administration Anxiety Trimethoprim/Sulfamethoxazole 520 mls @ 346.667 mls/hr 12/26/24 19:00 12/29/24 05:20 20 ml/ Dextrose IV Infused Q8H ALEJANDRO Infusion Azithromycin 500 mg/ Sodium 250 mls @ 250 mls/hr 12/27/24 09:00 12/28/24 10:54 Chloride IV Infused DAILY ALEJANDRO Infusion Levalbuterol HCl 1.25 mg 12/28/24 07:49 Levalbuterol 1.25 Mg/3 Ml Neb INH Q4H PRN Shortness of Air/Wheezing Levalbuterol HCl 1.25 mg 12/28/24 08:00 12/29/24 07:07 Levalbuterol 1.25 Mg/3 Ml Neb INH 1.25 mg TID LAEJANDRO Administration Ondansetron HCl 4 mg 12/26/24 11:17 Ondansetron Odt 4 Mg Tablet TL Q6HR PRN Nausea / Vomiting Ondansetron HCl 4 mg 12/26/24 11:17 Ondansetron 4 Mg/2 Ml Vial IVP Q6HR PRN Nausea / Vomiting Patient Own Med ( 1 each 12/28/24 09:00 12/28/24 08:25 Bictegrav-Emtricit- PO Not Given Tenofov Ala [ DAILY ALEJANDRO Biktarvy] 50-200-25 Mg Tablet) Prednisone 40 mg 12/28/24 09:00 12/28/24 21:32 Prednisone 20 Mg Tablet PO 40 mg BID ALEJANDRO Administration Sodium Chloride 10 ml 12/26/24 11:17 12/29/24 05:28 Sodium Chloride Flush 0.9% 10 Ml Syringe IVP 10 ml PRN PRN Administration NEEDED PER PROVIDER ORDERS Sodium Chloride 10 ml 12/26/24 17:00 12/29/24 01:45 Sodium Chloride Flush 0.9% 10 Ml Syringe IVP 10 ml 0100,0900,1700 ALEJANDRO Administration Sterile Water 10 ml 12/27/24 09:00 12/28/24 08:24 Water For Injection,Sterile 10 Ml Vial MC 10 ml DAILY ALEJANDRO Administration Objective Vital Signs/Intake & Output Reviewed Vital Signs: Yes Vital Signs: Vital Signs x48h Pulse Resp O2 Flow Rate 12/29/24 07:08 88 18 2.5 Intake & Output: Intake & Output 12/26/24 12/27/24 12/28/24 12/29/24 23:59 23:59 23:59 23:59 Intake Total 3330 / 3330 2580 / 2580 3720 / 3720 880 / 880 Balance 3330 / 3330 2580 / 2580 3720 / 3720 880 / 880 Weight (kg) 49 kg Objective General Appearance: positive No acute distress and Alert; negative Anxious Eyes Bilateral: positive Normal inspection, PERRL and EOMI ENT: positive ENT inspection nml, Pharynx nml and No signs of dehydration Neck: positive Nml inspection, Thyroid nml and No JVD Respiratory: positive Chest non-tender, No respiratory distress and Other (Diffuse fine crackles, right worse than left); negative Wheezes, Rales or Rhonchi Cardiovascular: positive Regular rate & rhythm, No murmur and No gallop; negative Tachycardia or Systolic murmur Abdomen: positive Non-tender, No organomegaly and No distention; negative Guarding or Splenomegaly Back: positive Nml inspection; negative CVA tenderness (R) or CVA tenderness (L) Skin: positive Color nml, No rash, Warm and Dry Extremities: positive Non-tender, Full ROM, Nml appearance and No pedal edema Neurologic/Psychiatric: positive Oriented x3, Motor nml and Mood/affect nml Lab Results 12/29/24 05:09 12/29/24 05:09 Other Labs: Lab Results x24hrs 12/29/24 Range/Units 05:09 WBC 11.5 H (4.8-10.8) x10^3/uL RBC 3.54 L (4.20-5.40) 10^6/uL Hgb 9.5 L (12.0-16.0) g/dL Hct 29.6 L (37.0-47.0) % MCV 83.6 (81.0-99.0) fL MCH 26.8 L (27.0-31.0) pg MCHC 32.1 (32.0-36.0) g/dL RDW 13.3 (12.0-15.0) % Plt Count 331 (130-450) 10^3/uL MPV 9.7 (7.9-10.8) fL Sodium 133 L (135-145) mmol/L Potassium 4.7 H (3.5-4.5) mmol/L Chloride 101 (101-111) mmol/L Carbon Dioxide 25 (21-32) mmol/L Anion Gap 7.0 (6-13) BUN 10 (6-20) mg/dL Creatinine 0.8 (0.6-1.3) mg/dL Estimated GFR (MDRD) 74 L (>89) Glucose 191 H (74-104) mg/dL Calcium 8.3 L (8.5-10.3) mg/dL Magnesium 1.9 (1.7-2.3) mg/dL Assessment/Plan Problem List (1) PCP (pneumocystis jiroveci pneumonia): Impression: Patient presents with shortness of breath, hypoxia requiring 5 L of oxygen, fevers and chills at home. She endorses being noncompliant with her Biktarvy. CT chest shows bilateral ground glass opacities. She is now down to 2.5 L. Will treat at this time as presumptive PCP pneumonia. Fungal sputum culture, anaerobic/aerobic cultures of the sputum are ordered, pending. [id number] send out test is also ordered. Continue Bactrim weight-based dosing IV every 8 hours. Will treat with IV Bactrim as recommended for a few days, and then switch to oral dosing for a total of 21-day course. Continue IV Bactrim at this time. Likely switch to oral Bactrim tomorrow. Her oxygen needs are decreasing, as well as her tachypnea, and leukocytosis. Patient is a little hypotensive, which is a common and known side effect of IV Bactrim. Will supplement with IV fluids as needed. Completed 2 days of IV SoluMedrol. Will do prednisone 40 mg twice a day for 3 additional days (today is 2/3), followed by prednisone 40 mg daily for 5 days, followed by prednisone 20 mg for 11 days. Qualifiers: Laterality: bilateral Lung location: unspecified part of lung Q ualified Code(s): B59 - Pneumocystosis (2) Acute hypoxic respiratory failure: Impression: See above. Continue 5 day course of Rocephin, 3 day course of azithromycin (completed) for possible community-acquired pneumonia. However, high suspicion for PCP pneumonia with patient having noncompliance with her antiretrovirals, as well as typical imaging findings of PCP pneumonia. (3) HIV (human immunodeficiency virus infection): Impression: Continue Biktarvy. Her CD4 count is 14. Per pharmacy, she has not filled her Biktarvy in over a year. I will call her infectious disease doctor on Sunday. She should be on histoplasmosis prophylaxis, as well as PCP prophylaxis moving forward. Will see if she has any resistance patterns or workup in the past with her ID doc, and if not we will resume her on her Biktarvy. 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
[2024-12-29 10:09] LABS: HIV-1 RNA BY PCR QUANT 109000.0 copies/mL (.); HIV-1 RNA LOG10 5.037 (.)
[2024-12-29] MEDS: BISACODYL 10 MG SUPP PR ONE (12:42)
[2024-12-30 05:03] LABS: HCT - HEMATOCRIT 32.0 % (37.0-47.0); HGB - HEMOGLOBIN 9.9 g/dL (12.0-16.0); MEAN PLATELET VOLUME 10.3 fL (7.9-10.8); PLT - PLATELET COUNT 236.0 10^3/uL (130-450); RED CELL DISTRIBUTION WIDTH 13.5 % (12.0-15.0)
[2024-12-30 05:18] LABS: BUN - BLOOD UREA NITROGEN 9.0 mg/dL (6-20); CARBON DIOXIDE - CO2 27.0 mmol/L (21-32); CREATININE 0.7 mg/dL (0.6-1.3); GFR - MDRD 86.0 (>89)
[2024-12-30] MEDS: MULTIVITAMIN W/MINERALS TABLET PO SCH (08:26)
--- NOTE | 2024-12-30 10:33 | PROVIDER PROGRESS NOTE ---
Subjective Prog Note Date Prog Note Date: 12/30/24 Prog Note Time: 10:25 Subjective Pt reports feeling: Improved Subjective: She is starving. Her words. Was really happy that there was send which is available in the middle of the night. Less short of breath. Able to get up out of bed and walk to the bathroom and get back in bed and not be completely wiped out with tachypnea and hypoxia. Still requiring 2 L nasal cannula to maintain her O2 sats above 90%. She denies chest pain, palpitations, phlegm, abdominal pain. No leg pain. Current Medications Current Medications Current Medications: Current Medications Generic Name Dose Route Start Last Admin Trade Name Freq PRN Reason Stop Dose Admin Acetaminophen 650 mg 12/26/24 11:17 Acetaminophen 325 Mg Tablet PO Q4HR PRN Pain 1 to 4, or Fever Alprazolam 0.5 mg 12/29/24 18:20 12/29/24 21:32 Alprazolam 0.25 Mg Tablet PO 0.5 mg NIGHTLY PRN Administration Anxiety Ceftriaxone Sodium 1 gm 12/27/24 09:00 12/30/24 08:26 Ceftriaxone 1 Gm Vial IVP 1 gm DAILY ALEJANDRO Administration Enoxaparin Sodium 40 mg 12/27/24 09:00 12/30/24 08:26 Enoxaparin 40 Mg/0.4 Ml Syringe SUBQ 40 mg DAILY ALEJANDRO Administration Guaifenesin 10 ml 12/27/24 09:26 12/30/24 00:12 Guaifenesin/Dextromethorphan 10 Ml Udc PO 10 ml Q6HR PRN Administration Cough Hydroxyzine Pamoate 25 mg 12/28/24 15:35 12/30/24 00:22 Hydroxyzine Pamoate 25 Mg Capsule PO 25 mg QPM PRN Administration Anxiety Levalbuterol HCl 1.25 mg 12/28/24 07:49 Levalbuterol 1.25 Mg/3 Ml Neb INH Q4H PRN Shortness of Air/Wheezing Levalbuterol HCl 1.25 mg 12/28/24 08:00 12/30/24 07:39 Levalbuterol 1.25 Mg/3 Ml Neb INH 1.25 mg TID ALEJANDRO Administration Multivitamins/Minerals 1 tab 12/30/24 08:00 12/30/24 08:26 Multivitamin W/Minerals Tablet PO 1 tab DAILYWM ALEJANDRO Administration Ondansetron HCl 4 mg 12/26/24 11:17 Ondansetron Odt 4 Mg Tablet TL Q6HR PRN Nausea / Vomiting Ondansetron HCl 4 mg 12/26/24 11:17 Ondansetron 4 Mg/2 Ml Vial IVP Q6HR PRN Nausea / Vomiting Patient Own Med ( 1 each 12/28/24 09:00 12/30/24 08:27 Bictegrav-Emtricit- PO 1 each Tenofov Ala [ DAILY ALEJANDRO Administration Biktarvy] 50-200-25 Mg Tablet) Prednisone 40 mg 12/28/24 09:00 12/30/24 08:26 Prednisone 20 Mg Tablet PO 40 mg BID ALEJANDRO Administration Sodium Chloride 10 ml 12/26/24 11:17 12/29/24 21:32 Sodium Chloride Flush 0.9% 10 Ml Syringe IVP 10 ml PRN PRN Administration NEEDED PER PROVIDER ORDERS Sodium Chloride 10 ml 12/26/24 17:00 12/30/24 08:27 Sodium Chloride Flush 0.9% 10 Ml Syringe IVP 10 ml 0100,0900,1700 ALEJANDRO Administration Sterile Water 10 ml 12/27/24 09:00 12/30/24 08:26 Water For Injection,Sterile 10 Ml Vial MC 10 ml DAILY ALEJANDRO Administration Trimethoprim/Sulfamethoxazole 2 tab 12/30/24 11:00 Sulfameth/Trimeth Ds 800/160 Mg Tablet PO Q8H ALEJANDRO Objective Vital Signs/Intake & Output Reviewed Vital Signs: Yes Vital Signs: Vital Signs x48h Temp Pulse Pulse Resp BP Pulse Ox O2 Flow Rate 12/30/24 07:50 37.0 C 91 16 110/55 L 92 2 12/30/24 07:40 84 20 2 Intake & Output: Intake & Output 12/27/24 12/28/24 12/29/24 12/30/24 23:59 23:59 23:59 23:59 Intake Total 2580 / 2580 3720 / 3720 2630 / 2630 1020 / 1020 Output Total 2 / 2 Balance 2580 / 2580 3720 / 3720 2630 / 2630 1018 / 1018 Objective General Appearance: positive No acute distress, Alert and Other (Thin, cachectic female at 5 foot 2 inches, 49 kg. Tearful when we discussed logistics of living in [place] and having Medicaid in [place] but using [place] facilities. I did ask her to please contact her Medicaid office and organ to make sure she does not get into financial trouble.) Eyes Bilateral: positive PERRL and EOMI ENT: positive No signs of dehydration; negative Purulent nasal drainage, Pharyngeal erythema or Oral lesions Neck: positive No JVD; negative Lymphadenopathy (R), Lymphadenopathy (L), Stiff neck or Carotid bruit Respiratory: positive Chest non-tender, No respiratory distress, Breath sounds nml and Other (Able to carry on a normal conversation without any tachypnea.); negative Wheezes, Rales or Rhonchi Cardiovascular: positive Regular rate & rhythm and Tachycardia (When she stood up, sat up, or spoke to me heart rate went from baseline 90 to 110); negative Systolic murmur or Diastolic murmur Abdomen: positive Non-tender, No organomegaly, Nml bowel sounds and No distention Skin: positive Warm, Dry and Pallor; negative Skin rash or Embolic lesions Extremities: positive Non-tender, Full ROM and Nml appearance Neurologic/Psychiatric: positive Oriented x3, CN's nml (2-12), Motor nml and Depressed mood/affect (Tearful) Lab Results 12/30/24 04:48 12/30/24 04:48 Other Labs: Lab Results x24hrs 12/30/24 Range/Units 04:48 WBC 10.0 (4.8-10.8) x10^3/uL RBC 3.74 L (4.20-5.40) 10^6/uL Hgb 9.9 L (12.0-16.0) g/dL Hct 32.0 L (37.0-47.0) % MCV 85.6 (81.0-99.0) fL MCH 26.5 L (27.0-31.0) pg MCHC 30.9 L (32.0-36.0) g/dL RDW 13.5 (12.0-15.0) % Plt Count 236 (130-450) 10^3/uL MPV 10.3 (7.9-10.8) fL Sodium 131 L (135-145) mmol/L Potassium 4.8 H (3.5-4.5) mmol/L Chloride 99 L (101-111) mmol/L Carbon Dioxide 27 (21-32) mmol/L Anion Gap 5.0 L (6-13) BUN 9 (6-20) mg/dL Creatinine 0.7 (0.6-1.3) mg/dL Estimated GFR (MDRD) 86 L (>89) Glucose 166 H (74-104) mg/dL Calcium 8.3 L (8.5-10.3) mg/dL Magnesium 2.0 (1.7-2.3) mg/dL ABX Reporting Has patient been on IV antibiotics over the past 48 hours?: Yes Assessment/Plan Problem List (1) Acute hypoxic respiratory failure: Impression: Identified is due to PCP pneumonia in a patient who has been noncompliant with her HIV medications over the last year. No evidence of heart failure. No PE. Treatment is consisted of treating the PCP pneumonia and she has been gradually improving. She was admitted at 6 L and at one point was on a 15 L nonrebreather. She is down to 2 L today. She says that she is worried about going home if she needs oxygen. Her plan is to stay with a friend out on the [place] near [place]. I explained to her that she can be discharged with oxygen we would just need an address. (2) PCP (pneumocystis jiroveci pneumonia): Impression: Presumed PCP pneumonia due to x-ray abnormality in a patients who has low CD4 counts and has been erratic in taking her Biktarvy for over a year. So far tolerating the Bactrim IV without drug rash. However has developed problem #3 below. She will need 21 days of total therapy with the Bactrim. And then she needs secondary prophylaxis. Qualifiers: Laterality: bilateral Lung location: unspecified part of lung Q ualified Code(s): B59 - Pneumocystosis (3) Hyperkalemia: Impression: Most likely due to Bactrim. I will give the patient Kayexalate or Lokelma. Which ever is on formulary. Recheck again later today (4) HIV (human immunodeficiency virus infection): Impression: Patient has been noncompliant with her medication. Last picked up over a year ago. She was last seen in the ID office in 2022. I was able to call her infectious disease data consultant, Dr. Duncan. He is on vacation and Dr. Recinos is covering for him. Currently her percent CD4 cells is 4.8%. Absolute CD4 count is 14. HIV RNA log copies have her at 5.037. Her HIV RNA levels are 109,000 copies per milliliter. He is worried that she may have developed resistance. He is asking for HIV genotype and HIV integrates resistance panel. He also urges her to get follow-up. They can do telehealth follow-up in the [facility] even though they are based in [place]. And he asked me to please urged her to make sure she stays compliant with medication due to that risk of resistance. 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
[2024-12-30] MEDS: SULFAMETH/TRIMETH DS 800/160 MG TABLET PO SCH (11:18)
[2024-12-30] MEDS: SODIUM ZIRCONIUM CYCLOSILICATE 5 GM PACKET PO ONE (11:18)
--- NOTE | 2024-12-31 09:26 | Discharge Summary ---
"Discharge Summary Admit Date: 12/26/24 Discharge Date: 12/31/24 Discharging Provider: Dr. Chang Wilkerson Primary Care Provider: Follows with ID in [place] Code Status: Attempt Resuscitation Discharge Facility Name: Home DIAGNOSES Discharge Diagnoses with Status of Each Condition: PCP pneumoniapatient presented with shortness of breath, hypoxia requiring 5 L of oxygen, fevers and chills at home. CT shows bilateral ground glass opacities. She endorses being noncompliant with her Biktarvy. Treating as presumed PCP. Initially was on IV Bactrim, will be switched to oral Bactrim on discharge to complete 21-day course. Will also be discharged on a prednisone taper to complete a 21-day course. Finally, the Bactrim is causing some hyperkalemia, so she will be advised to take Lokelma once daily at home and follow-up with her primary care provider to get her potassium checked weekly. Acute hypoxic respiratory failureoxygen saturations at rest, room air: 90%; oxygen saturations with exertion, room air: 84%. Oxygen saturations with exertion, 2 L nasal cannula 92%. 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 HIVcontinue Biktarvy, her CD4 count was 14. Follow-up outpatient with her infectious disease doctor. Vaping related disordercontinue cessation when appropriate. May need PFTs done. HPI History of Present Illness: Patient is a 59-year-old female with a history of HIV on Biktarvy, vape use history who presents with worsening shortness of breath. 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 She recently passed at the end of November. Since then, patient has been increasingly stressed and, and noncompliant with her Biktarvy regimen. She states that even normally, she only takes it 3 times a week, and that has helped keep her viral load undetectable. However, over the past few weeks, she has barely been taking it at all because she has been so distracted. She also was a heavy vape user, and quit on 12/09/2024. Since then, she has been increasingly short of breath. She normally lives in [facility], [place] here so she could help take care of her with this new shortness of breath. Her nurse friend was able to give her some breathing treatments, and supplement oxygen. However, last night, she ran out of oxygen. She had increasing shortness of breath, and as such decided to come to the ER. Over the last few weeks, she has also been having intermittent fevers and chills. In the ER, patient was hypoxic to 77%, and required 4 L of oxygen to improve to 92 to 95%. Her respiratory rate was 20, she was tachycardic to 103, afebrile, and blood pressure was 102/64. Lab work was reviewedshe does have a leukocytosis of 11.4. BMP was largely unremarkable. Respiratory viral panel was negative. Initial chest x-ray showed interstitial opacities. This was followed by a CTA which showed no PE, but bilateral ground glass opacities. Due to high suspicion for PCP pneumonia, she was started on IV Bactrim, as well as IV Solu-Medrol, and admitted for further workup. CONSULTS | PROCEDURES Procedures: CXR, CTA HOSPITAL COURSE Hospital Course: Patient is a 59-year-old female with a history of HIV not compliant with her Biktarvy who presented for fevers, chills, hypoxia, CTA with bilateral pleural effusions. Treated as presumed PCP pneumonia. Final respiratory cultures pending. 1 3 beta D glucan is positive. She was started on IV Bactrim, and transition to oral Bactrim. She was also on IV steroids, and transition to oral prednisone. She developed some hyperkalemia due to Bactrim use, which may be an ongoing issue with this continued use at home. Will need weekly BMP checks, and Lokelma daily as well. She will need close follow-up with her infectious disease in the outpatient setting for close monitoring of her HIV status and prophylaxis for opportunistic infections in the future. Her oxygen saturations at rest on room air were 90% but with exertion they dropped to 84%. She is going to require home oxygen to treat this patient's likely underlying COPD as a result from wheezing disorder, as well as his PCP pneumonia. She was deemed suitable for discharge home with close follow-up in the outpatient setting. ALLERGIES Allergies Allergy/AdvReac Type Severity Reaction Status Date / Time No Known Drug Allergies Allergy Verified 12/26/24 08:40 MEDICATIONS Ambulatory Orders Medication Instructions Recorded Confirmed acetylcysteine 500 mg tablet 500 mg PO DAILY 12/26/24 12/26/24 bictegravir 50 mg-emtricitabine 1 tab PO DAILY 5 12/26/24 200 mg-tenofovir alafenam 25 mg tablet (Biktarvy) tox ease 1 cap PO DAILY 12/26/2412/06 prednisone 20 mg tablet 20 mg PO DIRECTED #21 tab s 12/31/24 sodium zirconium cyclosilicate 5 5 g PO DAILY #16 ea 0 12/31/24 gram oral powder packet (Lokelma) sulfamethoxazole 800 2 tab PO Q8H 16 days #96 tab s 12/31/24 mg-trimethoprim 160 mg tablet PHYSICAL EXAM AT DISCHARGE Vital Signs: Vital Signs x48h Temp Pulse Resp BP Pulse Ox O2 Flow Rate 12/31/24 14:15 97.9 F 93 18 104/74 97 2 General Appearance: positive No acute distress and Alert; negative Anxious Eyes Bilateral: positive Normal inspection, PERRL and EOMI ENT: positive ENT inspection nml, Pharynx nml and No signs of dehydration Neck: positive Nml inspection, Thyroid nml and No JVD Respiratory: positive Chest non-tender, No respiratory distress ; negative Wheezes, Rales or Rhonchi Cardiovascular: positive Regular rate & rhythm, No murmur and No gallop; negative Tachycardia or Systolic murmur Abdomen: positive Non-tender, No organomegaly and No distention; negative Guarding or Splenomegaly Back: positive Nml inspection; negative CVA tenderness (R) or CVA tenderness (L) Skin: positive Color nml, No rash, Warm and Dry Extremities: positive Non-tender, Full ROM, Nml appearance and No pedal edema Neurologic/Psychiatric: positive Oriented x3, Motor nml and Mood/affect nml LABS 12/30/24 04:48 12/30/24 04:48 FOLLOW UP Follow Up: Follow up PCP. Follow up ID doctor. TIME SPENT Time Spent in Discharge (Minutes): 35 Discharge Plan Discharge Patient Disposition: Home, Self Care Condition: Stable Prescriptions: New sulfamethoxazole-trimethoprim 800-160 mg Tablet 2 tab PO Q8H 16 Days Qty: 96 0RF Rx Instructions: PCP pneumonia Lokelma 5 gram powder in packet 5 g PO DAILY Qty: 16 2RF prednisone 20 mg tablet 20 mg PO DIRECTED Qty: 21 0RF Rx Instructions: Please take 2 tabs, 40 mg, for an additional 5 days. After that, please take 1 tab a day for 11 days to finish out your course. Continued Biktarvy 50-200-25 mg tablet 1 tab PO DAILY tox ease 1 cap PO DAILY Rx Instructions: Beyond Balance Supplement acetylcysteine 500 mg tablet 500 mg PO DAILY Activity Restrictions: Activity as Tolerated Diet: Regular Health Concerns: You came in because you were having shortness of breath. We are treating you for a presumed pneumonia called PCP pneumonia. As discussed, you are going to need a long course of antibiotics. We started you on IV Bactrim while you are here, and you will continue this 2 tabs 3 times a day for 16 additional days. Additionally, you will continue prednisonefor 5 days, and you will do 2 tabs of the 20 mg once a day, and then follow this with 1 tab once a day for 11 days. The Bactrim is also causing your potassium levels to be higher. As such, for the remainder of this 16-day course of Bactrim, I would like you to continue the Lokelma 1 packet a day. This will help keep the potassium within normal limits. Ideally, you would follow-up with your infectious disease doctor and your primary care doctor and have them recheck your potassium levels, and make sure you are doing okay. As you know, when you walked with the respiratory therapist today, your oxygen levels did drop. Will be sending you home with oxygen as needed. I know that our respiratory therapist talked with you about preoxygenation prior to activity. Please follow-up closely with your infectious disease doctor; please take your Biktarvy every day as prescribed. We are glad you're feeling better; thanks for allowing us to take care of you. Print Language: German Patient Instructions: HIV Genotypic Resistance Stand Alone Forms: PCP List Vitals documented within 30 minutes of discharge?: Yes"
[2024-12-31] MEDS ORDERED: SODIUM ZIRCONIUM CYCLOSILICATE 5 GM PACKET PO ONE (11:00)
[2024-12-31] MEDS: SODIUM ZIRCONIUM CYCLOSILICATE 5 GM PACKET PO ONE ×2 (14:21→20:14)
[2024-12-31] MEDS ORDERED: SODIUM ZIRCONIUM CYCLOSILICATE 5 GM PACKET PO SCH (17:00)
[2024-12-31 20:18] VITALS: BP 150/93; TEMP 98.6; O2SAT 99
== END 2024-12-31 20:10 | disposition home or self-care (01) | DRG 189 ==
LOC: ED 08:33 → MS2 10:29
PROVIDERS: ADMIT Internal Medicine; ATTEND Internal Medicine